=== PATIENT | male | born 1940 | race Caucasian/White ===

== ENCOUNTER 2016-11-14 08:55 | Emergency (ER) | payer MEDICARE ==
[~2016-11-14] VITALS: Ht 182.9 cm; Wt 95.3 kg
[2016-11-14] MEDS ORDERED: LIDOCAINE 1%-EPI 1:100,000 20 ML VIAL TP ONE (09:00)
[2016-11-14 09:22] LABS: BASOPHILS % (AUTO) 0.6 % (0.0-2.0); DIFF TOTAL % 100 %; EOSINOPHILS # (AUTO) 0.3 /CMM (0.0-0.7); EOSINOPHILS % (AUTO) 3.2 % (0.0-6.0); HEMATOCRIT 42 % (39-51); HEMOGLOBIN 14.3 g/dL (13.5-17.5); LYMPHOCYTES # (AUTO) 1.4 /CMM (0.8-4.8); LYMPHOCYTES % (AUTO) 17.8 % (20.0-44.0); MEAN CORPUSCULAR HEMOGLOBIN 31 PG (26.0-33.0); MEAN CORPUSCULAR HGB CONC 34 g/dl (31.0-36.0); MEAN CORPUSCULAR VOLUME 92 fL (80-96); MONOCYTES # (AUTO) 0.9 /CMM (0.1-1.30); MONOCYTES % (AUTO) 11.8 % (2.0-12.0); NEUTROPHILS # (AUTO) 5.3 /CMM (1.8-8.9); NEUTROPHILS % (AUTO) 66.6 % (43.0-81.0); PLATELET COUNT (AUTO) 207 /CMM (150-450); RED BLOOD CELL COUNT(AUTO) 4.63 MIL/uL (4.5-6.0)
[2016-11-14 09:33] LABS: CALCIUM, SERUM 9.1 mg/dL (8.5-10.1); CREATININE 1.3 mg/dL (0.6-1.3); POTASSIUM 3.8 mmol/L (3.5-5.1)
[2016-11-14 09:41] LABS: INR 1.27 (0.87-1.13); PROTHROMBIN TIME 13.8 SECS (9.5-12.7)
[2016-11-14 11:18] VITALS: BP 128/88
== END 2016-11-14 11:20 | disposition home or self-care (01) ==
LOC: ER 08:57
DX: S01.81XA Laceration without foreign body of other part of head, initial encounter (principal); G20 Parkinson's disease; R79.1 Abnormal coagulation profile; Z88.0 Allergy status to penicillin; W01.198A Fall on same level from slipping, tripping and stumbling with subsequent striking against other object, initial encounter; Y93.89 Activity, other specified; Y92.89 Other specified places as the place of occurrence of the external cause; Y99.9 Unspecified external cause status
CPT/HCPCS: 12013; 36415; 70450; 71010; 72125; 80048; 85025; 85730; 93005; 99285; A4606; A6402; Z7610

== ENCOUNTER 2017-10-29 14:47 | Emergency (ER) | payer BC, MEDICARE ==
[~2017-10-29] VITALS: Ht 188 cm; Wt 94.3 kg
--- NOTE | 2017-10-29 14:52 | NUR ---
PT BIB FAMILY TO ER BED 10. FOREHEAD ABRASION AND SKIN TEAR S/P MECHANICAL TRIP AND FALL AT 1345. NO KO. PER FAMILY HX OF FREQUENT FALLS. HX OF PARKINSONS. GOWNED AND PLACED ON MONITOR. NAD NOTED. AWAITING MD CRESPO.
--- NOTE | 2017-10-29 15:30 | NUR ---
PT TO RADIOLOGY FOR HEAD CT SCAN VIA [facility].
[2017-10-29] MEDS ORDERED: LIDOCAINE 1% INJ 50 ML MDV IJ ONE (16:19)
--- NOTE | 2017-10-29 16:58 | NUR ---
CADE JERONIMO AT BEDSIDE FOR LAC REPAIR.
--- NOTE | 2017-10-29 17:10 | NUR ---
LAC REPAIR DONE. 6 SUTURES NOTED. AWAITING WOUND CARE.
--- NOTE | 2017-10-29 17:10 | NUR ---
Note january in EDM - 10/29/17 at 1732 by JOYCE LAC REPAIR DONE. 6 SUTURES NOTED. PT D/C HOME IN STABLE CONDITION.
--- NOTE | 2017-10-29 17:30 | NUR ---
WOUND CARE PROVIDED. Patient discharged to home in stable condition. Written and verbal after care instructions given. Patient and Family verbalizes understanding of instruction.
[2017-10-29 17:33] VITALS: BP 132/84
== END 2017-10-29 17:35 | disposition home or self-care (01) ==
LOC: ER 14:48
DX: S01.81XA Laceration without foreign body of other part of head, initial encounter (principal); G20 Parkinson's disease; Z88.0 Allergy status to penicillin; W01.0XXA Fall on same level from slipping, tripping and stumbling without subsequent striking against object, initial encounter; Y93.89 Activity, other specified; Y92.090 Kitchen in other non-institutional residence as the place of occurrence of the external cause; Y99.8 Other external cause status
CPT/HCPCS: 12013; 70450; 99284; A4606; A6402 ×3; A6403; J3490; Z7610

== ENCOUNTER 2017-11-21 18:54 | Inpatient (IN) | payer MEDICARE ==
[~2017-11-21] VITALS: Ht 188 cm; Wt 94.5 kg
--- NOTE | 2017-11-21 19:20 | NUR ---
PT RECEIVED FROM HOME BY RA WITH CAREGIVER AND C/O GENERALIZED WEAKNESS X1 DAY WITH NO TRAUMA REPORTED. NO SOB WITH ADEQUATE CEHST RISE/FALL. A/OX2 CONFUSED AT TIMES BUT WITH ADEQUATE EXTREMITY STRENGTH. VSS NAD. WILL CONTINUE TO MONTIOR FOR ANY CHANGES
--- NOTE | 2017-11-21 19:28 | NUR ---
EKG DONE AT BEDSIDE
--- NOTE | 2017-11-21 19:33 | NUR ---
ALL LABS SENT TO LAB WITH TECH
[2017-11-21 19:39] LABS: BASOPHILS # (AUTO) 0.1 /CMM (0.0-0.2); BASOPHILS % (AUTO) 0.6 % (0.0-2.0); EOSINOPHILS # (AUTO) 0.1 /CMM (0.0-0.7); EOSINOPHILS % (AUTO) 0.7 % (0.0-6.0); HEMATOCRIT 46 % (39-51); HEMOGLOBIN 15.8 g/dL (13.5-17.5); LYMPHOCYTES # (AUTO) 0.4 /CMM (0.8-4.8); LYMPHOCYTES % (AUTO) 3.4 % (20.0-44.0); MEAN CORPUSCULAR HEMOGLOBIN 32 PG (26.0-33.0); MEAN CORPUSCULAR HGB CONC 35 g/dl (31.0-36.0); MEAN CORPUSCULAR VOLUME 91 fL (80-96); MONOCYTES # (AUTO) 0.5 /CMM (0.1-1.30); MONOCYTES % (AUTO) 4.3 % (2.0-12.0); PLATELET COUNT (AUTO) 240 /CMM (150-450); RDW COEFFICIENT OF VARIATION 13.1 (11.5-15.0); RED BLOOD CELL COUNT(AUTO) 4.99 MIL/uL (4.5-6.0); WHITE BLOOD COUNT (AUTO) 11.1 K/uL (4.3-11.0)
[2017-11-21 19:49] LABS: CALCIUM, SERUM 9.4 mg/dL (8.5-10.1); CARBON DIOXIDE 30 mmol/L (21-32); CHLORIDE 99 mmol/L (98-107); CREATININE 1.5 mg/dL (0.6-1.3); GLUCOSE 125 mg/dL (74-106); POTASSIUM 4.2 mmol/L (3.5-5.1); SODIUM SERUM 137 mmol/L (136-145); UREA NITROGEN, BLOOD 26 mg/dL (7-18)
[2017-11-21 19:55] LABS: INR 1.24 (0.87-1.13)
[2017-11-21 19:59] LABS: TROPONIN I 0.072 ng/mL (0.00-0.056)
[2017-11-21] MEDS ORDERED: LIDOCAINE 2% JEL UROJET 10 ML MM ONE (20:08)
--- NOTE | 2017-11-21 20:31 | NUR ---
CALLED [employer], COOK CHIEF WAS PAGED.
--- NOTE | 2017-11-21 20:32 | NUR ---
OFF TO CT SCAN
[2017-11-21 20:38] LABS: APPEARANCE,URINE Clear (CLEAR); BILIRUBIN,URINE Negative (NEGATIVE); BLOOD, URINE Negative Ery/uL (NEGATIVE); COLOR,URINE Yellow (YELLOW); KETONES,URINE Negative (NEGATIVE); LEUKOCYTE ESTERASE ,URINE Negative (NEGATIVE); NITRITE, URINE Negative (NEGATIVE); PH,URINE 5.5 (5.0-8.0); PROTEIN,URINE Negative (NEGATIVE); UGLUCOSE Negative (NEGATIVE); UROBILINOGEN,URINE 0.2 EU/dL (0.2)
[2017-11-21] MEDS ORDERED: DIGO250T PO (21:08)
[2017-11-21] MEDS ORDERED: CHOL500062 PO (21:08)
[2017-11-21] MEDS ORDERED: CHOL400T PO (21:08)
[2017-11-21] MEDS ORDERED: VITA1TAB20 PO (21:08)
[2017-11-21] MEDS ORDERED: RASA1TAB4 PO (21:08)
[2017-11-21] MEDS ORDERED: CARB-94 PO (21:08)
[2017-11-21] MEDS ORDERED: MIDO5TAB PO (21:08)
[2017-11-21] MEDS ORDERED: RIVA10TA PO (21:08)
[2017-11-21] MEDS ORDERED: MULT-225 PO (21:08)
[2017-11-21] MEDS ORDERED: EPLE25TA10 PO (21:08)
[2017-11-21] MEDS ORDERED: TORS20TA3 PO (21:08)
[2017-11-21] MEDS ORDERED: ASCO250T6 PO (21:08)
[2017-11-21] MEDS ORDERED: ASPI-1169 PO (21:08)
[2017-11-21] MEDS ORDERED: ASPIRIN 81 MG TAB.CHEW ONE (21:15)
[2017-11-21] MEDS ORDERED: ASPIRIN 81 MG TAB.CHEW PO STA (21:18)
--- NOTE | 2017-11-21 21:19 | NUR ---
REPORT GIVEN TO KAYLA IN [facility]
[2017-11-21] MEDS ORDERED: IV D5/0.45 NACL 1,000 ML IV PRN (21:33)
[2017-11-21 21:40] VITALS: BP 143/79
--- NOTE | 2017-11-21 21:40 | NUR ---
REAL ESTATE RECRUITER OPENING NOTES: RECEIVED PT WITH AND CAREGIVER AT BEDSIDE. PT BROUGHT UP FROM FROM ER NURSE ZEINAB. PT ON ROOM AIR AND TOLERATING WELL. NOTED TREMORS ON R ARM. PT TO BE PLACED ON TELE BOX. PT IS A/OX2. PT APPEARS TO BE DROWSY. PT HAS L FOREARM #18G AND IS BEING INFUSED WITH D5 1/2 NS AT 75ML/HR. CALL LIGHT WITHIN PT'S REACH. BED KEPT IN LOW, LOCKED POSITION, AND SIDE RAILS X 2UP. WILL CONTINUE TO MONITOR PT.
[2017-11-21] MEDS ORDERED: LEVOFLOXACIN 750 MG /D5W 150ML 150 ML IV ONE (21:53)
[2017-11-21 22:00] VITALS: BP 143/79
[2017-11-21] MEDS ORDERED: HYDROCODONE/APAP 5/325MG 1 EACH TABLET PO PRN (22:00)
[2017-11-21] MEDS ORDERED: ACETAMINOPHEN 325 MG TABLET PO PRN (22:00)
[2017-11-21] MEDS ORDERED: LEVOFLOXACIN 750 MG /D5W 150ML 750 MG in PREMIX 1 EA IV SCH (22:00)
[2017-11-21] MEDS ORDERED: MAGNESIUM HYDROXIDE 30 ML UDC PO PRN (22:00)
[2017-11-21] MEDS ORDERED: Z GUARD REMEDY 2 OZ OINT TP PRN (22:00)
[2017-11-21] MEDS ORDERED: ZOLPIDEM TARTRATE 5 MG TABLET PO PRN (22:00)
[2017-11-21] MEDS ORDERED: ONDANSETRON HCL/PF 4 MG/2 ML VIAL IVP PRN (22:00)
[2017-11-21] MEDS ORDERED: MORPHINE SULFATE INJ 4 MG/ML DISP.SYRIN IV PRN (22:00)
[2017-11-21] MEDS ORDERED: MAG HYDROX/AL HYDROX/SIMETH 30 ML UDC PO PRN (22:00)
--- NOTE | 2017-11-21 22:03 | NUR ---
WELDER FIRST CLASS NOTES: HAD TO MANUALLY ADMINISTER LEVAQUIN SINCE JOHN NOT SCANNING MED. CHARGE NURSE OVERRODE MED.
[2017-11-22] VITALS (8 sets, daily range): BP systolic 101–124; BP diastolic 60–80
--- NOTE | 2017-11-22 04:14 | NUR ---
COMMUNITY HEALTH COORDINATOR NOTES: DR. IESHA Anderson AT BEDSIDE. PER DR. JULIAN, HOLD BREAKFAST TRAY IN THE MORNING UNTIL SEEN BY POLE MAKER.
--- NOTE | 2017-11-22 04:14 | NUR ---
EXHAUST WORKER NOTES: DR. JULIAN AWARE OF 0.111 TROPONIN LEVEL.
[2017-11-22 07:48] LABS: BASOPHILS % (AUTO) 0.3 % (0.0-2.0); EOSINOPHILS # (AUTO) 0.2 /CMM (0.0-0.7); EOSINOPHILS % (AUTO) 2.1 % (0.0-6.0); HEMATOCRIT 40 % (39-51); HEMOGLOBIN 13.7 g/dL (13.5-17.5); LYMPHOCYTES # (AUTO) 0.7 /CMM (0.8-4.8); LYMPHOCYTES % (AUTO) 8.8 % (20.0-44.0); MEAN CORPUSCULAR HEMOGLOBIN 32 PG (26.0-33.0); MEAN CORPUSCULAR HGB CONC 35 g/dl (31.0-36.0); MEAN CORPUSCULAR VOLUME 92 fL (80-96); MONOCYTES # (AUTO) 0.6 /CMM (0.1-1.30); MONOCYTES % (AUTO) 7.9 % (2.0-12.0); NEUTROPHILS # (AUTO) 6.2 /CMM (1.8-8.9); NEUTROPHILS % (AUTO) 80.9 % (43.0-81.0); PLATELET COUNT (AUTO) 199 /CMM (150-450); RDW COEFFICIENT OF VARIATION 13.6 (11.5-15.0); RED BLOOD CELL COUNT(AUTO) 4.28 MIL/uL (4.5-6.0); WHITE BLOOD COUNT (AUTO) 7.6 K/uL (4.3-11.0)
--- NOTE | 2017-11-22 08:00 | NUR ---
RN OPENING NOTES RECEIVED PATIENT IN BED AWAKE, VERBALLY RESPONSIVE. CAREGIVER AT BEDSIDE. HOB ELAVATED. NO ACUTE DISTRESS NOTED. IV ACCES PATENT AND INTACT.NO REDNESS AND NO S/SX OF INFILTRATION NOTED. BREATHING UNLABORED. CALL LIGHT PLACED WITHIN REACH. SAFETY MEASURE IN PLACE. WILL CONTINUE TO MONITOR ACCORDINGLY.
--- NOTE | 2017-11-22 08:00 | NUR ---
RN OPENING NOTES RECEIVED PATIENT IN BED AWAKE, VERBALLY RESPONSIVE. HOB ELAVATED. NO ACUTE DISTRESS NOTED. DENIED ANY PAIN. IV ACCES PATENT AND INTACT. BREATHING UNLABORED. CALL LIGHT PLACED WITHIN REACH. SAFETY MEASURE IN PLACE. WILL CONTINUE TO MONITOR ACCORDINGLY.
[2017-11-22 08:04] LABS: ALANINE AMINOTRANSFERASE 22 U/L (12-78); ALBUMIN 3.3 g/dL (3.4-5.0); ALKALINE PHOSPHATASE 54 U/L (46-116); ASPARTATE AMINOTRANSFERASE 20 U/L (15-37); BILIRUBIN,TOTAL 1.9 mg/dL (0.2-1.0); CALCIUM, SERUM 8.8 mg/dL (8.5-10.1); CARBON DIOXIDE 26 mmol/L (21-32); CHLORIDE 102 mmol/L (98-107); CREATININE 1.5 mg/dL (0.6-1.3); GLUCOSE 96 mg/dL (74-106); MAGNESIUM 1.8 mg/dL (1.8-2.4); PHOSPHORUS 2.5 mg/dL (2.5-4.9); POTASSIUM 3.8 mmol/L (3.5-5.1); SODIUM SERUM 139 mmol/L (136-145); TOTAL PROTEIN, SERUM 6.7 g/dL (6.4-8.2); UREA NITROGEN, BLOOD 22 mg/dL (7-18)
[2017-11-22 08:13] LABS: CHOLESTEROL 174 mg/dL (<200); CREATINE KINASE MB 0.9 ng/mL (0-3.6); HDL CHOLESTEROL 39 mg/dL (40-60); LDL 129 mg/dL (0-99); THYROID STIMULATING HORMONE 1.551 uIU/mL (0.358-3.74); TRIGLYCERIDES 88 mg/dL (30-150)
--- NOTE | 2017-11-22 08:15 | NUR ---
BOTANY TECHNICIAN CLOSING NOTES: ALL NEEDS WERE ATTENDED AND ANTICIPATED FOR. CAREGIVER AT BEDSIDE. PT ON ROOM AIR AND TOLERATING WELL. TREMORS ARE STILL NOTED ON R HAND. PT ON TELE BOX AND READING SHOWS SINUS RHYTHM WITH OCCASIONAL PVCS. PT IS A/OX3. PT HAS L FOREARM #18G AND IS BEING INFUSED WITH D5 1/2 NS AT 75ML/HR. CALL LIGHT WITHIN PT'S REACH. BED KEPT IN LOW, LOCKED POSITION, AND SIDE RAILS X 2UP. INFORMED CAREGIVER AND PT THAT BREAKFAST TRAY TO BED HELD UNTIL SEEN BY MANAGER ACTION. ENDORSED TO AM NURSE FOR KELLY. Addendum: 11/22/17 at 0818 by ANA PAN RN CORRECTION :::: PT ON TELE BOX AND READING SHOWS V PACING 60.
[2017-11-22 08:20] LABS: IRON, SERUM 31 ug/dl (50-175); TOTAL IRON BINDING CAPACITY 241 ug/dl (250-450)
[2017-11-22 08:30] LABS: INR 1.31 (0.87-1.13)
[2017-11-22] MEDS ORDERED: CARBIDOPA/LEVODOPA 25/250 MG 1 UDTAB PO SCH (09:00)
[2017-11-22] MEDS ORDERED: Medication Not On Formulary EA (Cholecalciferol (Vitamin D3) (Vitamin D3) 5,000 UNIT) PO SCH (09:00)
[2017-11-22] MEDS: VITAMIN B COMP W-C 1 TAB TABLET PO SCH (09:40)
[2017-11-22] MEDS: ASCORBIC ACID 500 MG TABLET PO SCH (09:40)
[2017-11-22] MEDS: MIDODRINE HCL (5MG) 5 MG TABLET PO SCH ×3 (09:41→17:56)
[2017-11-22] MEDS: ASPIRIN 81 MG TAB.CHEW PO SCH (09:43)
[2017-11-22] MEDS: ATORVASTATIN 10 MG TABLET PO SCH (09:43)
[2017-11-22] MEDS: CHOLECALCIFEROL (VITAMIN D 3) 400 UNIT TABLET PO SCH (09:43)
[2017-11-22] MEDS: MULTIVITAMINS,THERAGRAN 1 UDTAB TABLET PO SCH (09:53)
[2017-11-22] MEDS: DIGOXIN 0.25 MG TABLET PO SCH (12:29)
--- NOTE | 2017-11-22 17:00 | NUR ---
RN CLOSING NOTES RECEIVED PATIENT IN BED AWAKE, VERBALLY RESPONSIVE. CAREGIVER AND AT BEDSIDE. HOB ELAVATED. NO ACUTE DISTRESS NOTED. IV ACCES PATENT AND INTACT.NO REDNESS AND NO S/SX OF INFILTRATION NOTED. BREATHING UNLABORED. DENIED ANY PAIN. DUE MEDICATIONS GIVEN, NO ASE NOTED. NEEDS ATTENDED. CALL LIGHT PLACED WITHIN REACH. SAFETY MEASURE IN PLACE. WILL CONTINUE TO MONITOR ACCORDINGLY AND ENDORSE TO BLOOD DONOR RECRUITER FOR CONTINUITY OF CARE.
[2017-11-22] MEDS: RIVAROXABAN 10 MG TABLET PO SCH (17:52)
[2017-11-22] MEDS: CARBIDOPA/LEVODOPA 25/250 MG 1 UDTAB PO SCH (17:57)
--- NOTE | 2017-11-22 18:45 | NUR ---
Spoke with caregiver Holli who is at bedside. Patient lives locally with spouse in a single level home. He has 24hrs caregivers, he normally walks with supervision, he requires assistance with adl's. Has adequate DME: commode, walker, shower chair, raised toilet seat, and wheelchair. Has no homehealth reported. Areli cell# [phone]. Has good family support. Current plan is to return home. Addendum: 11/22/17 at 1846 by MARITO SANTOS RN Amended: Links added.
--- NOTE | 2017-11-22 19:30 | NUR ---
RN OPENING NOTES RECEIVED PATIENT IN BED, ASLEEP BUT EASILY AWOKEN, VERBALLY RESPONSIVE, NO FACIAL GRIMACING NOTED, NO SOB, BREATHING EVEN AND UNLABORED, FAMILY AT BEDSIDE, IN NO ACUTE DISTRESS. ALL PATIENT'S NEEDS ATTENDED TO AT THIS TIME. CALL LIGHT PLACED WITHIN EASY REACH. WILL CONTINUE TO MONITOR.
--- NOTE | 2017-11-22 23:00 | NUR ---
RN NOTE PATIENT IN BED, ASLEEP, IN NO ACUTE DISTRESS, BREATHING EVEN AND UNLABORED, CAREGIVER NOTED TO BE AT BEDSIDE. ALL PATIENT'S NEEDS ATTENDED TO. KEPT PT SAFE AND DRY, CLEAN AND COMFORTABLE. WILL CONTINUE TO MONITOR.
[2017-11-23] VITALS (8 sets, daily range): BP systolic 94–154; BP diastolic 53–95
--- NOTE | 2017-11-23 07:19 | NUR ---
RN CLOSING NOTES PATIENT IN BED, ASLEEP BUT EASILY AWOKEN, ALERT AND ORIENTED X 2, NOTED WITH NO SOB, BREATHING EVEN AND UNLABORED, NO C/O PAIN AT THIS TIME AND IN NO ACUTE DISTRESS. ALL PATIENT'S NEEDS ATTENDED TO AT THIS TIME, KEPT PT SAFE AND DRY, CLEAN AND COMFORTABLE. PATIENT'S CAREGIVER AT BEDSIDE, PLACED BED IN LOW POSITION AND LOCKED IN PLACE. WILL ENDORSE TO AM NURSE FOR CONTINUITY OF CARE.
[2017-11-23 07:44] LABS: BASOPHILS % (AUTO) 0.4 % (0.0-2.0); EOSINOPHILS # (AUTO) 0.4 /CMM (0.0-0.7); EOSINOPHILS % (AUTO) 4.7 % (0.0-6.0); HEMATOCRIT 41 % (39-51); HEMOGLOBIN 14.1 g/dL (13.5-17.5); LYMPHOCYTES # (AUTO) 1.2 /CMM (0.8-4.8); MEAN CORPUSCULAR HEMOGLOBIN 32 PG (26.0-33.0); MEAN CORPUSCULAR HGB CONC 34 g/dl (31.0-36.0); MEAN CORPUSCULAR VOLUME 93 fL (80-96); MONOCYTES # (AUTO) 0.9 /CMM (0.1-1.30); MONOCYTES % (AUTO) 10.8 % (2.0-12.0); NEUTROPHILS # (AUTO) 6.1 /CMM (1.8-8.9); NEUTROPHILS % (AUTO) 70.1 % (43.0-81.0); PLATELET COUNT (AUTO) 182 /CMM (150-450); RDW COEFFICIENT OF VARIATION 13.8 (11.5-15.0); RED BLOOD CELL COUNT(AUTO) 4.46 MIL/uL (4.5-6.0); WHITE BLOOD COUNT (AUTO) 8.6 K/uL (4.3-11.0)
[2017-11-23 07:54] LABS: TROPONIN I 0.096 ng/mL (0.00-0.056)
[2017-11-23 08:04] LABS: ALANINE AMINOTRANSFERASE 9 U/L (12-78); ALBUMIN 3.3 g/dL (3.4-5.0); ALKALINE PHOSPHATASE 54 U/L (46-116); ASPARTATE AMINOTRANSFERASE 21 U/L (15-37); BILIRUBIN,TOTAL 1.2 mg/dL (0.2-1.0); CARBON DIOXIDE 27 mmol/L (21-32); CHLORIDE 103 mmol/L (98-107); CREATININE 1.4 mg/dL (0.6-1.3); GLUCOSE 88 mg/dL (74-106); MAGNESIUM 1.9 mg/dL (1.8-2.4); PHOSPHORUS 2.8 mg/dL (2.5-4.9); POTASSIUM 3.9 mmol/L (3.5-5.1); SODIUM SERUM 140 mmol/L (136-145); TOTAL PROTEIN, SERUM 6.9 g/dL (6.4-8.2); UREA NITROGEN, BLOOD 18 mg/dL (7-18)
[2017-11-23] MEDS ORDERED: Rasagiline Mesylate 1 MG PO SCH (09:00)
[2017-11-23] MEDS: IV NS 0.9% 1,000 ML IV PRN ×2 (09:10→20:09)
[2017-11-23] MEDS: VITAMIN B COMP W-C 1 TAB TABLET PO SCH (09:31)
[2017-11-23] MEDS: CARBIDOPA/LEVODOPA 25/250 MG 1 UDTAB PO SCH ×2 (09:32→17:39)
[2017-11-23] MEDS: ATORVASTATIN 10 MG TABLET PO SCH (09:32)
[2017-11-23] MEDS: CHOLECALCIFEROL (VITAMIN D 3) 400 UNIT TABLET PO SCH (09:32)
[2017-11-23] MEDS: ASPIRIN 81 MG TAB.CHEW PO SCH (09:32)
[2017-11-23] MEDS: MIDODRINE HCL (5MG) 5 MG TABLET PO SCH ×3 (09:32→17:00)
[2017-11-23] MEDS: MULTIVITAMINS,THERAGRAN 1 UDTAB TABLET PO SCH (09:37)
[2017-11-23] MEDS: ASCORBIC ACID 500 MG TABLET PO SCH (09:38)
[2017-11-23] MEDS: DIGOXIN 0.25 MG TABLET PO SCH (13:00)
--- NOTE | 2017-11-23 13:45 | NUR ---
IV RATE LOWERED TO 75ML. PER HR.
[2017-11-23] MEDS ORDERED: SOD FERRIC GLUC 125 MG in IV NS 0.9% 100 ML IV SCH (14:00)
--- NOTE | 2017-11-23 17:00 | NUR ---
ANNA JETT UMBRELLA MENDER HERE AND AWARE OF PT. STATUS.
[2017-11-23] MEDS: RIVAROXABAN 10 MG TABLET PO SCH (17:46)
--- NOTE | 2017-11-23 18:05 | NUR ---
REPORT TO RN TO CHECK ON PT.BY BEDSIDE CAREGIVER-PT. COOL AND CLAMMY.RN IN,VS TAKEN.SEE GRAPHIC,BGL CHECKED AND NORMAL,EQUIPMENT WASHER ANNA JETT HERE AND INFORMED,ORDERS GIVEN.
--- NOTE | 2017-11-23 18:07 | NUR ---
EPISODE OF CLAMMY AND COOL STATUS WAS AT 1330.
--- NOTE | 2017-11-23 20:00 | NUR ---
RN NOTES RECEIVED PT SLEEPING BUT AROUSABLE TO PAINFUL STIMULI, IV FLUID NS RUNNING @ 75ML/HR, DENIES PAIN, NO SOB, CALL LIGHT WITHIN REACH, SIDERAILSUPX2 CONTINUE TO MONITOR
[2017-11-23] MEDS: MUPIROCIN OINT 2% 22 GM TUBE SCH (20:09)
[2017-11-23] MEDS ORDERED: LEVOFLOXACIN 750 MG /D5W 150ML 750 MG in PREMIX 1 EA IV SCH (21:00)
--- NOTE | 2017-11-23 22:00 | NUR ---
RN NOTES PT. CAREGIVER CAME , PT IS FULLY AWAKE NOW, DENIES PAIN, NO SOB
--- NOTE | 2017-11-24 06:32 | NUR ---
RN NOTES AWAKE, MORNING CARE RENDERED, CAREGIVER AT BEDSIDE, DENIES PAIN, NO SOB, , CALL LIGHT WITHIN REACH, SIDERAILSUPX2, PT. NEEDS ATTENDED
[2017-11-24 06:35] VITALS: BP_SYST 121; BP_SYST 127; BP_DIAS 72; BP_DIAS 75
--- NOTE | 2017-11-24 07:30 | NUR ---
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 RECEIVED PT. IN BED A&OX1-2, WITH CAREGIVER AT BEDSIDE. BREATHING UNLABORED, AND EVENLY ON ROOM AIR. NO S/S OF ACUTE DISTRESS. IV FLUIDS AT BEDSIDE. BED ALARM IS ON. BED IS IN LOWEST, AND LOCKED POSITION, 2 SIDE RAILS UP, AND CALL LIGHT WITHIN REACH. ALL NEEDS MET. WILL CONTINUE TO ASSESS AND MONITOR.
[2017-11-24 08:00] VITALS: BP 126/70
[2017-11-24] MEDS: VITAMIN B COMP W-C 1 TAB TABLET PO SCH (10:00)
[2017-11-24] MEDS: CHOLECALCIFEROL (VITAMIN D 3) 400 UNIT TABLET PO SCH (10:01)
[2017-11-24] MEDS: MULTIVITAMINS,THERAGRAN 1 UDTAB TABLET PO SCH (10:01)
[2017-11-24] MEDS: ATORVASTATIN 10 MG TABLET PO SCH (10:01)
[2017-11-24] MEDS: CARBIDOPA/LEVODOPA 25/250 MG 1 UDTAB PO SCH (10:01)
[2017-11-24] MEDS: ASCORBIC ACID 500 MG TABLET PO SCH (10:01)
[2017-11-24] MEDS: ASPIRIN 81 MG TAB.CHEW PO SCH (10:02)
[2017-11-24] MEDS: MIDODRINE HCL (5MG) 5 MG TABLET PO SCH ×2 (10:02→13:01)
[2017-11-24] MEDS: MUPIROCIN OINT 2% 22 GM TUBE SCH (12:58)
[2017-11-24] MEDS: DIGOXIN 0.25 MG TABLET PO SCH (13:00)
[2017-11-24 13:01] VITALS: BP 102/61
[2017-11-24] MEDS ORDERED: FERROUS SULFATE (325 MG) 325 MG/TAB TABLET PO SCH (14:00)
--- NOTE | 2017-11-24 14:30 | NUR ---
AUTOMATIC PACKER OPERATOR PT. LEAVING [facility] BY AMBULANCE TO [facility] IN MEDIALLY STABLE CONDITION.
== END 2017-11-24 15:20 | DRG 280 ==
LOC: ER 18:55 → TELE 20:43 → MED 11-23 20:44
PROVIDERS: ADMIT Internal Medicine; ATTEND Internal Medicine
DX: I21.A1 Myocardial infarction type 2 (principal); J69.0 Pneumonitis due to inhalation of food and vomit; N17.0 Acute kidney failure with tubular necrosis; I50.23 Acute on chronic systolic (congestive) heart failure; I95.9 Hypotension, unspecified; G20 Parkinson's disease; I13.0 Hypertensive heart and chronic kidney disease with heart failure and stage 1 through stage 4 chronic kidney disease, or unspecified chronic kidney disease; I48.91 Unspecified atrial fibrillation; E86.0 Dehydration; E03.9 Hypothyroidism, unspecified; E78.5 Hyperlipidemia, unspecified; I10 Essential (primary) hypertension; N18.9 Chronic kidney disease, unspecified; R53.1 Weakness; Z79.01 Long term (current) use of anticoagulants; Z88.0 Allergy status to penicillin; Z79.82 Long term (current) use of aspirin; Z79.899 Other long term (current) drug therapy; K52.9 Noninfective gastroenteritis and colitis, unspecified; I25.10 Atherosclerotic heart disease of native coronary artery without angina pectoris; Z95.0 Presence of cardiac pacemaker; F02.80 Dementia in other diseases classified elsewhere, unspecified severity, without behavioral disturbance, psychotic disturbance, mood disturbance, and anxiety; E61.1 Iron deficiency; I35.0 Nonrheumatic aortic (valve) stenosis; Z22.322 Carrier or suspected carrier of Methicillin resistant Staphylococcus aureus; I70.0 Atherosclerosis of aorta
CPT/HCPCS: 36415; 70450-TC; 71045-TC; 80048-TC; 80053-TC; 80061-TC; 80162-TC; 81000-TC; 82553-TC; 82746; 82962-TC; 83540-TC; 83735-TC; 84100-TC; 84443-TC; 84484-TC; 85025-TC; 85730-TC; 87040-TC; 87081-TC; 87400; 93307-TC; A4216; A4606; J1956; J2916; J3490; J7030; Z7610